=== PATIENT | male | born 1960 | race Caucasian/White ===

== ENCOUNTER 2024-12-09 01:38 | Emergency (ER) | payer SELFPAY ==
[~2024-12-09] VITALS: Ht 175.3 cm; Wt 106.6 kg
[2024-12-09 03:53] VITALS: BP 130/84; TEMP 98.1; O2SAT 96
== END 2024-12-09 03:53 | disposition home or self-care (01) ==
LOC: ER 01:47
DX: G89.29 Other chronic pain (principal); M25.562 Pain in left knee; E11.9 Type 2 diabetes mellitus without complications; Z87.19 Personal history of other diseases of the digestive system; Z60.2 Problems related to living alone